=== PATIENT | female | born 1995 | race Caucasian/White ===

== ENCOUNTER → 2016-02-14 | Day surgery (SDC) | payer OTHER ==
[2016-01-31 20:19] VITALS: BMI 21.8
[~2016-02-14] MED LIST: CEFAZOLIN 1 GM VIAL ONE; DEXAMETHASONE 4 MG/ML VIAL IV ONE; ESMOLOL 100 MG/10 ML VIAL IV ONE; FENTANYL 100 MCG/2 ML VIAL IV ONE; FENTANYL 100 MCG/2 ML VIAL IV PRN; FENTANYL 100 MCG/2 ML VIAL ONE; HYDROmorphone 1 MG INJECTION IV PRN; KETOROLAC TROMETH 30 MG/ML VIAL IM ONE; LABETALOL 20 MG/4 ML SYRINGE IV PRN; LIDOCAINE 100 MG PFS IV ONE; MEPERIDINE 25 MG/ML TUBEX IV PRN; METHYLERGONOVINE 0.2 MG/ML AMPULE IM ONE; METHYLERGONOVINE 0.2 MG/ML AMPULE ONE; METOCLOPRAMIDE 10 MG/2 ML VIAL IV ONE; METOCLOPRAMIDE 10 MG/2 ML VIAL ONE; MIDAZOLAM 2 MG/2 ML VIAL IV ONE; ONDANSETRON HCL 4 MG ODT TAB PO PRN; ONDANSETRON HCL 4 MG/2 ML VIAL IV ONE; ONDANSETRON HCL 4 MG/2 ML VIAL IV PRN; ONDANSETRON HCL 4 MG/2 ML VIAL ONE; PROPOFOL 200 MG/20 ML VIAL IV ONE; SUCCINYLCHOLINE 20 MG/1 ML INJ 10 ML MDV IV ONE; hydrALAZINE 20 MG/ML VIAL IV PRN
[2016-02-14 11:11] LABS: MPV 7.3 fL (7.4-10.4)
[2016-02-14 11:25] LABS: PARTIAL THROMB. TIME 25.7 SEC (22-35); PT-INR 1.1
--- NOTE | 2016-02-14 13:02 | HIM.ANES ---
Anesthesia Evaluation & Plan Diagnoses: MISSED (02/14/16) Consented Procedure: Suction dilation and evacuation Surgeon:: Roderick Bang - Focused Review of Systems Now: Yes Cardiac History: Yes: Hx Cardia Arrhythmia (DROPPED BEAT NOTED ON EXAM) No: Hx Cardiac Disorders HEENT: Yes: Hx Vision Problem (reading glasses) No: Other HEENT Problems Hx Other HEENT Surgery: T&A, WISDOM TEETH REMOVAL Respiratory: Yes: Hx Asthma (as a child), Hx Snoring Gastrointestinal: Yes: Hx Endoscopy No: Hx Gastrointestinal Disorders Neurological/Musculoskeletal: No: Hx Neurological Disorders Psychological: Yes Hx Anxiety, Yes Hx Depression, Yes Hx Mental/Emotional Disorders, Yes Hx Bipolar Disorder HX Other Psyco/Soc Problems: hx - cutter Blood/Autoimmune: No: Hx AIDS, Hx Hepatitis (type) Smoking Status: Heavy tobacco smoker (5 or more cigarettes/day or daily pipe/ cigar) Past Social History: Reports: Marijuana Use Alcohol use: None Surgical History: Yes: T&A Other Surgical History: T&A, WISDOM TEETH REMOVAL Tonsil/Adnoid- 2003 - Focused Physical Exam NPO since: water 0700 Mallampati: Class II Thyromental Distance: Greater than 3 Neck: Limited Range of Motion Dental: Normal - no significant findings Cardiovascular/Chest: Normal Respiratory: Lungs clear Any problems with anesthesia, including nausea and vomiting?: No Any relatives with a history of Malignant Hyperthermia?: No Does patient have a history of Malignant Hyperthermia?: No Beta Susanne given (if appropriate): N/A Does the patient have a history of Motion Sickness-: No Other: Problem List Problem Status Onset Abdominal pain Acute Ankle Sprain Acute Dehydration Acute Early stage of Acute Hyperemesis gravidarum Acute Hypokalemia Acute Hypokalemia Acute Nausea and vomiting Acute Tinea capitis Acute PT/PTT/INR/ PT 11.5 SEC (9.2-11.2) H 02/14/16 11:05 INR 1.1 02/14/16 11:05 APTT 25.7 SEC (22-35) 02/14/16 11:05 CBC/BMP/Other 02/14/16 11:05 Allergies Allergy/AdvReac Type Severity Reaction Status Date / Time cefaclor [From Ceclor] Allergy Severe Hives* Verified 02/14/16 11:33 loracarbef [From Lorabid] Allergy Severe Hives* Verified 02/14/16 11:33 Home Medications Medication Instructions Recorded Last Taken Type Vits W-Ca,Fe,FA(<1Mg) 1 tab PO DAILY 01/31/16 02/12/16 21:00 History [] Height and Weight Patient's height 5 ft 5 in Patient's weight 61.235 kg BMI 21.8 Vital Signs Temperature 97.0 F L 02/14/16 11:15 Pulse Rate 112 02/14/16 11:15 Respiratory Rate 16 02/14/16 11:15 Blood Pressure 114/70 02/14/16 11:15 Pulse Oxygen Saturation 100 02/14/16 11:15 METS - Level of Activity: Climbing stairs(1 flight),walking level ground, running short distance - Anesthetic Plan Anesthesia Type: General ASA Class: 2 -: I have examined this patient and reviewed the medical record. The patient has been assessed prior to anesthesia. Risks and benefits of anesthesia and anesthetic technique options have been discussed and all questions answered. The patient accepts the risk and desires me to proceed with the planned anesthetic.
--- NOTE | 2016-02-14 14:26 | HIMOPRPT ---
DATE OF PROCEDURE: 02/14/16 PREOPERATIVE DIAGNOSIS: Missed . POSTOPERATIVE DIAGNOSIS: Missed . PROCEDURE: Cervical dilation and uterine evacuation. SURGEON: Roderick Bang MD. ANESTHESIA: General endotracheal tube. COMPLICATIONS: None. ESTIMATED BLOOD LOSS: 5 mL.. FINDINGS: Uterus 10 weeks and anteverted on exam under anesthesia. PROCEDURE IN DETAIL: The patient was taken to the operating room and after successful induction of general endotracheal tube anesthesia, she was positioned in [facility]. The perineum and vagina were prepped and draped as a sterile field and the bladder was drained. A weighted speculum and anterior Sruthi were placed and the cervix was secured with a long Allis clamp. The cervix was was already dilated to allow passage of a #12suction catheter was passed and the uterine cavity was evacuated. A medium-size curette was passed under u/s guidance to be sure the cavity was clean. Methergine 0.25 mg IM was given to help with hemostasis. The patient was observed and once all instruments were removed, bleeding was noted to be minimal. She was taken down from [facility], awoken from general anesthesia, and brought to the recovery room in stable condition. All specimens were sent to pathology. Sponge and instrument counts were correct x3. D:
--- NOTE | 2016-02-14 14:27 | PCM.DCS92 ---
- Primary/Secondary Discharge Diagnoses (1) Missed with demise before 20 completed weeks of gestation Acute O02.1 - MISSED Present on Admission: Yes - HOSPITAL COURSE /Op Complications: None - DISCHARGE INSTRUCTIONS Discharge Disposition: Home Discharge Condition: Good Cognitive Discharge Status: Unimpaired Fuctional Discharge Status: Independent Patient Leaving with Prescriptions?: Yes Prescriptions: Hydrocodone Bit/Acetaminophen [Lortab 5/325] 1 - 2 tab PO Q4H PRN #30 tab PRN Reason: Pain Ibuprofen Tablet [Motrin] 800 mg PO Q6-8H PRN #30 tab PRN Reason: Pain Referrals: Roderick Bang MD [Staff Physician] - Listed Time - Diet Diet at Discharge: Regular - Activity Activity: Pelvic Rest, No Driving No Driving for: While using pain medications - Instructions Call Physician for: Severe Abdominal Cramps, Foul Smelling Discharge, Soaking Pad in 1 hr, Temperature Above 100.4 - Incision Incision, Lacerations, or Tears: No - DC Summary Notes Discharge Medications: *See "Discharge Medication List" for a complete list of Home Medications and Discharge Medications.*
[2016-02-14 15:21] VITALS: TEMP 97.9
[2016-02-14 16:22] VITALS: PULSE 82
[2016-02-16 01:17] VITALS: BP 133/87
--- NOTE | 2016-02-16 01:17 | SC.ANESPOS ---
Post-Anesthesia Note LOC: Fully Awake Post-Anesthesia Assessment: Awake, Returned to Baseline, Hemodynamically Stable , Pain Control Adequate Phase I & II Recovery Complete: Yes Apparent Anesthesia Complication: No : N - Vital Signs Blood Pressure: 133/87 Pulse: 82 Resp Rate: 18 O2 Sat: 94 Temp: 97.9 F
== END ==
LOC: SDC 10:19
PROVIDERS: ATTEND Obstetrics & Gynecology
PROC: 10D17ZZ Extraction of Products of Conception, Retained, Via Natural or Artificial Opening (ICD-10-PCS; principal; 2016-02-14 11:25)
DX: O02.1 Missed abortion (principal); O99.341 Other mental disorders complicating pregnancy, first trimester; F41.9 Anxiety disorder, unspecified; F32.9 Major depressive disorder, single episode, unspecified; O99.331 Smoking (tobacco) complicating pregnancy, first trimester; F17.210 Nicotine dependence, cigarettes, uncomplicated; Z3A.01 Less than 8 weeks gestation of pregnancy; Z79.899 Other long term (current) drug therapy
CPT/HCPCS: 59820; 85027; 85610; 85730; 86850; 86900; 86901; J0330; J0690; J1100; J1885; J2001; J2210; J2250; J2405; J2765; J3010; J3490